=== PATIENT | male | born 1955 | race Caucasian/White ===

== ENCOUNTER 2021-02-18 01:40 | Emergency (ER) | payer BC, OTHER ==
[~2021-02-18] VITALS: Ht 170.2 cm; Wt 70.3 kg
[2021-02-18 01:54] VITALS: BP 187/88
[2021-02-18] MEDS ORDERED: HYDROXYZINE HYDROCHLORIDE 25 MG TAB PO ONE (02:10)
[2021-02-18] MEDS ORDERED: CLONIDINE HYDROCHLORIDE 0.1 MG TAB PO ONE (02:35)
--- NOTE | 2021-02-18 03:00 | NUR ---
SEE COMPLETE ASSESSMENT
[2021-02-18] MEDS ORDERED: ACETAMINOPHEN EXTRA STRENGTH 500 MG TAB PO ONE (03:50)
[2021-02-18] MEDS ORDERED: IBUPROFEN 600 MG TAB PO ONE (03:50)
--- NOTE | 2021-02-18 04:24 | NUR ---
Patient discharged with v/s stable. Written and verbal after care instructions given and explained. Patient verbalized understanding. Ambulatory with steady gait WITH PD. All questions addressed prior to discharge. Advised to follow up with PMD.
[2021-02-18 04:25] VITALS: BP 157/89
== END 2021-02-18 04:17 ==
LOC: MED 01:40
DX: F10.129 Alcohol abuse with intoxication, unspecified (principal); R03.0 Elevated blood-pressure reading, without diagnosis of hypertension; Z02.89 Encounter for other administrative examinations; Z88.0 Allergy status to penicillin; Z91.040 Latex allergy status
CPT/HCPCS: 71045; 93005; 99283